=== PATIENT | male | born 1955 ===

== ENCOUNTER 2017-08-23 11:40 | Inpatient (IN) | payer OTHER ==
[2017-08-23] MEDS ORDERED: Dextrose 50% Syringe 50 ML* 25 GM/50 ML SYRINGE IV PUSH PRN (14:19)
[2017-08-23] MEDS ORDERED: Ondansetron INJ* 2 MG/ML VIAL IV PRN (14:19)
[2017-08-23] MEDS ORDERED: Acetaminophen TAB* 325 MG PO PRN (14:19)
[2017-08-23] MEDS ORDERED: Metoprolol Tartrate TAB* 25 MG PO SCH (14:22)
[2017-08-23 14:26] LABS: ABS Basophils 0.1 10^3/ul (0-0.2); ABS Eosinophils 0 10^3/ul (0-0.6); ABS Lymphocytes 2.7 10^3/ul (1.0-4.8); ABS Monocytes 0.7 10^3/ul (0-0.8); ABS Neutrophils 5.2 10^3/ul (1.5-7.7); ABS Nucleated RBC 0 10^3/ul; Eosinophil % 0.4 % (0-6); Hematocrit 46 % (42-52); Hemoglobin 16.4 g/dl (14.0-18.0); Lymphocyte % 30.9 % (25-47); Mean Corpuscular HGB Conc 36 g/dl (31-36); Mean Corpuscular Hemoglobin 33 pg (27-31); Mean Corpuscular Volume 92 fL (80-94); Mean Platelet Volume 8 um3 (7.4-10.4); Nucleated Red Blood Cells % 0.1; Platelet Count 299 10^3/ul (150-450); Red Blood Count 4.98 10^6/ul (4.0-5.4); Red Cell Distribution Width 13 % (10.5-15); White Blood Count 8.8 10^3/ul (3.5-10.8)
[2017-08-23 14:41] LABS: EGFR Non-African American 78.4 (>60)
[2017-08-23 14:44] LABS: INR 0.95 (0.77-1.02)
[2017-08-23] MEDS ORDERED: Perflutren Lipid Microsphere* 3 ML VIAL ONE (15:49)
--- NOTE | 2017-08-23 16:33 | ECHO ---
Patient: DIO MALIK [facility] Rec#: [id number] : 1955 Date: 08/23/2017 Age: 61y Height: 167.64 cm / 66.0 in Weight: 82.55 kg / 181.9 lbs Sex: M BSA: 1.92 Room#: [facility] Admit Date#: 08/23/2017 Type: Inpatient Referring: Júnior Marie NP Reading: Alexsander Anderson MD Systems Mgr: Daphne Rivera,RDCS,RDMS Transthoracic Echocardiogram Indication: CP, SOB, Elevated Trops BP: 128/62 HR: 83 Rhythm: NSR Findings History: HTN, HLD Technical Comments: The study quality is fair. The study is technically limited due to poor apical windows. Left Ventricle: The left ventricular chamber size is normal. Mild concentric left ventricular hypertrophy is observed. Global left ventricular wall motion and contractility are within normal limits. There is normal left ventricular systolic function. The estimated ejection fraction is 55-60%. There is an E to A reversal in the mitral valve flow pattern suggestive of diastolic dysfunction. Left Atrium: The left atrial chamber size is normal. Right Ventricle: The right ventricular chamber size and systolic function are within normal limits. Right Atrium: The right atrium appears normal. Aortic Valve: The aortic valve is trileaflet. Systolic excursion of the aortic valve is normal. There is no evidence of aortic regurgitation. There is no evidence of aortic stenosis. Mitral Valve: The mitral valve leaflets appear normal. There is a trace of mitral regurgitation. There is no evidence of mitral stenosis. Tricuspid Valve: The tricuspid valve leaflets are normal. There is trace tricuspid regurgitation. No pulmonary hypertension is noted. Pulmonic Valve: The pulmonic valve structure is not well visualized. There is no evidence of pulmonic regurgitation. Pericardium: There is no significant pericardial effusion. Aorta: The aortic root appears normal. There is mild dilatation of the aortic arch. Pulmonary Artery: The main pulmonary artery is not well visualized. Venous: The inferior vena cava is not visualized. Contrast: Definity was used to optimize study. A total of 2 ml was used Summary: There was not any prior study for comparison. Conclusions Mild concentric left ventricular hypertrophy is observed. Global left ventricular wall motion and contractility are within normal limits. There is normal left ventricular systolic function. The estimated ejection fraction is 55-60%. Systolic excursion of the aortic valve is normal. There is no evidence of aortic regurgitation. There is a trace of mitral regurgitation. There is trace tricuspid regurgitation. There is no significant pericardial effusion. Measurements Name Value Normal Range RVIDd (AP) 2D 2.6 cm (0.9 - 2.6) IVSd (2D) 1.2 cm (0.6 - 1) LVPWd (2D) 1.2 cm (0.6 - 1) LVIDd (2D) 4 cm (3.6 - 5.4) LVIDs (2D) 2.5 cm - LV FS (2D) 36 % (25 - 45) Aortic Annulus 2 cm (1.4 - 2.6) Ao root diameter (2D) 3.3 cm (2.1 - 3.5) Ascending Ao 3 cm (2.1 - 3.4) Aortic arch 3.6 cm (1.8 - 3.4) LA dimension (AP) 2D 3.6 cm (2.3 - 3.8) LAd ISD 4CH 5.7 cm (2.9 - 5.3) LA ISD 4CH W 4.3 cm (2.5 - 4.5) Name Value Normal Range LA ESV SP 4CH (A/L) 71.57 ml - LA ESV SP 2CH (A/L) 47.16 ml - LA ESV BP (A/L) 58.27 ml - LA ESV BP (A/L) index 30 ml/m2 - LA ESV SP 4CH (MOD) 67.02 ml - LA ESV SP 2CH (MOD) 45.05 ml - Name Value Normal Range MV E-wave Vmax 0.6 m/sec - MV deceleration time 203 msec - MV A-wave Vmax 0.7 m/sec - MV E:A ratio 0.9 ratio - P. vein S-wave Vmax 0.6 m/sec - P. vein D-wave Vmax 0.4 m/sec - P. vein S:D Vmax ratio 1.5 ratio - P. vein A-wave duration 107 msec - LV septal e' Vmax 0.05 m/sec - LV lateral e' Vmax 0.08 m/sec - LV E:e' septal ratio 12 ratio - LV E:e' lateral ratio 7.5 ratio - Name Value Normal Range AV Vmax 1.3 m/sec - AV VTI 21 cm - AV peak gradient 7 mmHg - AV mean gradient 4.1 mmHg - LVOT Vmax 1 m/sec - LVOT VTI 16.7 cm - LVOT peak gradient 4 mmHg - LVOT mean gradient 2.1 mmHg - MANFRED Vmax 0.9 m/sec - Name Value Normal Range TR Vmax 2.3 m/sec - TR peak gradient 21 mmHg - RAP 3 mmHg - RVSP 24 mmHg - Name Value Normal Range PV Vmax 0.7 m/sec - PV peak gradient 1.9 mmHg -
[2017-08-23] MEDS: Atorvastatin* 80 MG TAB PO SCH (16:52)
[2017-08-23] MEDS: Insulin LISPRO* 1 UNITS UNIT SUBCUT SCH (16:52)
--- NOTE | 2017-08-23 19:59 | HP ---
CC: Dr. Anderson * HISTORY AND PHYSICAL: DATE OF ADMISSION: 08/23/17 PRIMARY CARE PROVIDER: None. ATTENDING PHYSICIAN WHILE IN THE HOSPITAL: Dr. Fahad Verdugo * (report dictated by Júnior Marie NP). CHIEF COMPLAINT: 1. Shortness of breath. 2. Weakness. HISTORY OF PRESENT ILLNESS: Mr. Yancey is a 61-year-old male patient. Jarod chang has a history of diabetes, hypertension, hyperlipidemia. He used to be a smoker, he quit in 1986, he smoked for about 5 years. He says typically 3 times a week , he does swimming. He will swim 40 plus laps. He, unfortunately, though today , had an episode where he got about half way through his routine, he was doing about 22 laps, he got very weak, he got short of breath, he felt like he was going to drown and go under. He got to the edge of the pool. He hung out there. He got out of the pool, started feeling nauseated. He checked his pulse , he noticed that it was beating rapidly. He went home. When he got home, he was lying down. He checked his pulse lying down and he said in 15 seconds, he has counted about 40 beats. At that point, he was very concerned. He went over to [facility]. He was evaluated there and initial troponin was 0.09 , repeat troponin was 0.2. There was concern for acute coronary syndrome and he was sent over. He never once had chest discomfort. He says that he just felt short of breath. He denies any recent trips or travel. No calf pain. No leg swelling. No recent fevers or chills. He denied having any abdominal pain or any nausea or vomiting. He says that he had again no chest discomfort. He does state that over the last 3 weeks, said he has had intermittent discomfort at night, described it as a burning pain. He says it feels like reflux to him. When he turns and repositions in bed, it does go away. He was over at [facility]. Because of the elevated troponin, we were asked to accept him in transfer for further cardiovascular care. PAST MEDICAL HISTORY: Significant for: 1. Diabetes. 2. Hypertension. 3. Hyperlipidemia. PAST SURGICAL HISTORY: He has had a right femur ORIF. MEDICATIONS: The home meds include, according to his list: 1. Metformin 1000 mg p.o. b.i.d. 2. Ramipril 10 mg daily. 3. Lopid 600 mg daily. 4. Atorvastatin 10 mg daily. 5. Aspirin 81 mg daily. ALLERGIES TO MEDICATIONS: Include DEMEROL. FAMILY HISTORY: His mother had a history of tachycardia. His father had a history of stroke x2. SOCIAL HISTORY: He does not smoke anymore, he quit in 1986. He does drink 2 to 3 beers nightly. Surrogate decision maker is his , Garima. REVIEW OF SYSTEMS: There is no documented fever. No significant weight gain. There is no double vision. There is no ear discharge. There is no rhinorrhea. No sore throat. No thyroid enlargement. Denied having any chest pain. There was dyspnea on exertion. There was no abdominal pain. There was an episode of nausea, but no vomiting. No dysuria, no frequency. No seizure, no loss of consciousness. No pruritus and no skin ulcerations. Review of 14 systems completed, all others negative. PHYSICAL EXAMINATION GENERAL: At this time, Mr. Yancey is a 61-year-old male patient. He appears to be well-nourished, well-developed. He is sitting in the hospital bed. He does not appear to be in acute distress. VITAL SIGNS: Blood pressure 128/68, pulse 84, respirations 16, O2 sat 97%, temperature 98.0. HEENT: Head: Atraumatic, normocephalic. Eyes: EOMs are intact. Sclerae anicteric and not pale. NECK: Supple. Throat: Oral mucosa appears to be moist. No oropharyngeal erythema. LUNGS: Clear to auscultation bilaterally. No wheezes, rales, or rhonchi. HEART: Sounds S1, S2. Regular rate and rhythm. No murmurs, rubs, or gallops. ABDOMEN: Soft, flat, nontender. Bowel sounds present. EXTREMITIES: Pulses 2+ throughout. He had no peripheral edema. He is able to move all 4 extremities with 5/5 strength. NEUROLOGIC: The patient is awake, alert, oriented x3. Tongue midline. [employer] Developer were equal. He had no gross focal deficits. SKIN: Grossly intact. DIAGNOSTIC STUDIES/LAB DATA: He had WBC of 8.8, RBC of 4.95, hemoglobin of 15.4, hematocrit 46, platelet count of 299. He did have sodium 134, potassium 4.9, chloride of 97, bicarb 23, his creatinine was 1.6, BUN 18, calcium 9.5, mag 1.9. Total bili 0.4, AST 23, ALT 32, alk phos 22. Troponin 0.092, repeat troponin was 0.201. D-dimer less than 400. He had an EKG when he initially presented there showed sinus tachycardia rate of 101. No ST elevation or T-wave inversions. Repeat EKG today shows a sinus rhythm, rate of 84. No ST elevation or T-wave inversions. Old medical records were reviewed. He did have a chest x-ray at [place], impression: No acute disease. Old medical records reviewed. ASSESSMENT AND PLAN: Mr. Yancey is a 61-year-old male patient coming into the ED today with complaints of tachycardia. In addition to this, also complains of shortness of breath, particularly with exertion. He will be admitted under inpatient status for: 1. Acute coronary syndrome, possible non-ST elevation myocardial infarction. At this point, I did touch base. Dr. Anderson will be evaluating the patient. He will be n.p.o. after midnight for possible cath in the morning. He is chest pain free now. He is not having any symptoms. He is on an aspirin, statin, and I am going to add the beta tequila. He is on Lopid already. We will continue with these medications. Should he have any continued discomfort, I will consider heparin drip and I will wait for the recommendations from Dr. Anderson if he wants to pursue heparin drip. At this point, he is not having any symptoms and his EKG appears to be stable. We will cycle his troponins and we will continue to follow him closely. 2. Hypertension. Continue the meds prescribed. 3. Hyperlipidemia. We will check lipid panel in the morning. 4. Diabetes mellitus. sliding scale. We will check his A1c in the morning. 5. Code status. He is a full code. 6. Fluids, electrolytes, and nutrition. He can have a consistent carb, heart- healthy diet with no caffeine. 7. DVT prophylaxis. Heparin subcu as he is moderate risk. TIME SPENT: On the admission was 60 minutes, greater than half of the time was spent [id number] with the patient obtaining my history and physical, other time spent going over the plan of care with the patient and implementing the plan of care. I did discuss the plan of care with my attending, Dr. Verdugo; he is in agreement. JÚNIOR MARIE NP [id number]/CPS #: [id number] VILLA
[2017-08-23] MEDS: Heparin VIAL(*) 5000 UNITS/ML VIAL (FIVE THOUSAND) SUBCUT SCH (21:07)
--- NOTE | 2017-08-23 21:30 | CONS ---
CARDIOLOGY CONSULTATION: DATE OF CONSULT: 08/23/17 INDICATIONS FOR CONSULTATION: Palpitations, abnormal troponin level. HISTORY OF PRESENT ILLNESS: The patient is a 61-year-old gentleman with a history of diabetes and hypertriglyceridemia who came to the emergency room because of episode of palpitations. The patient states that he was swimming this morning for exercise. He does it 3 times a week. He states that while he was swimming, he just felt he had no energy. All of a sudden, he just felt like he could not swim anymore. It was difficult for him to finish his last lap. He decided to get out of pool, while he was showering and drying off, he just felt profoundly fatigued. He denied any chest pain, he denied any shortness of breath. The patient states that when he was walking out of the exercise facility, he did feel some diaphoresis but again no chest pain, no nausea, no shortness of breath. The patient states he went home, he had a glass of orange juice which made him feel a little bit better and while he was sitting in his couch, he felt his pulse in his neck and thought his heart rate was going about 160 beats a minute. Ultimately, he decided to have his drive him to the emergency room. The patient states that when he was walking into the emergency room, he did not have that same symptoms. He states that his energy level was normal, he was not profoundly fatigued, he did not think he was having tachycardia. His initial EKG at [facility] showed normal sinus rhythm with normal axis and intervals. The patient's initial troponin level was 0.2. The patient was transferred over to [facility] for evaluation. His troponin level at [facility] was 0.31. PAST MEDICAL HISTORY: Significant for: 1. Diabetes. 2. Hypertension. 3. Hyperlipidemia. PAST SURGICAL HISTORY: Right femur pinning in the past. OUTPATIENT MEDICATIONS: 1. Metformin 1000 mg b.i.d. 2. Atorvastatin 10 mg a day. 3. Ramipril 10 mg a day. 4. Gemfibrozil 600 mg a day. 5. Aspirin 81 mg a day. FAMILY HISTORY: Significant for diabetes and stroke. SOCIAL HISTORY: He is a previous smoker. He quit a year ago. He does have 1 to 2 beers a day. He lives with his . He denies any fevers or chills. No changes in bowel or bladder habits. No changes in weight. Other 10-point review is unremarkable. PHYSICAL EXAM: Height is 5 feet 6 inches, weight is 182 pounds, temperature 98.6, heart rate is 85, blood pressure of 109/62, respiratory rate is 20, oxygen saturation 95% on room air. Sclerae are anicteric. Oropharynx is pink without erythema. Carotids are 2+ without bruits. JVD is normal. Thyroid is normal. Cardiac Exam: S1, S2 without any murmurs, rubs, or gallops. Lungs are clear to auscultation bilaterally. There is no dullness to percussion. Abdomen is soft, nontender and nondistended with normoactive bowel sounds. Extremities show no edema. He has 2+ pulses throughout. The patient is awake, alert and oriented. He moves all 4 extremities equally. DIAGNOSTIC STUDIES/LAB DATA: CBC within normal limits. Chemistries within normal limits. BNP 76, troponin 0.31. EKG is normal sinus rhythm with normal axis and intervals. His echocardiogram shows normal LV size and systolic function. No significant valvular abnormalities. IMPRESSION: This is a 61-year-old gentleman who had an episode of tachycardia today. It seems that it lasted approximately 45 minutes to an hour. He was in normal sinus rhythm when he arrived in the emergency room. The patient had mildly elevated troponin levels. I do not think that this is consistent with an acute coronary syndrome. I think his elevated troponins are due to demand mismatch due to his tachycardia. For now, my recommendation is to rule out further elevations in his troponin level. I will schedule him for stress echocardiogram in the morning. We will stay off of beta blockers for now until his stress test was completed. This was discussed with Júnior Marie. [id number]/[facility] #: [id number] VILLA
[2017-08-24] MEDS: Heparin VIAL(*) 5000 UNITS/ML VIAL (FIVE THOUSAND) SUBCUT SCH ×2 (05:33→15:31)
[2017-08-24 05:53] LABS: ABS Basophils 0.1 10^3/ul (0-0.2); ABS Eosinophils 0.2 10^3/ul (0-0.6); ABS Lymphocytes 2.6 10^3/ul (1.0-4.8); ABS Monocytes 0.6 10^3/ul (0-0.8); ABS Neutrophils 2.4 10^3/ul (1.5-7.7); ABS Nucleated RBC 0 10^3/ul; Eosinophil % 2.6 % (0-6); Hematocrit 47 % (42-52); Hemoglobin 16.5 g/dl (14.0-18.0); Lymphocyte % 44.5 % (25-47); Mean Corpuscular HGB Conc 35 g/dl (31-36); Mean Corpuscular Hemoglobin 33 pg (27-31); Mean Corpuscular Volume 93 fL (80-94); Mean Platelet Volume 8 um3 (7.4-10.4); Nucleated Red Blood Cells % 0; Platelet Count 259 10^3/ul (150-450); Red Blood Count 5.04 10^6/ul (4.0-5.4); Red Cell Distribution Width 13 % (10.5-15); White Blood Count 5.8 10^3/ul (3.5-10.8)
[2017-08-24 06:00] LABS: EGFR Non-African American 81.3 (>60)
[2017-08-24] MEDS: Insulin LISPRO* 1 UNITS UNIT SUBCUT SCH ×3 (08:31→16:47)
[2017-08-24] MEDS ORDERED: Gemfibrozil TAB* 600 MG PO SCH (09:00)
[2017-08-24] MEDS ORDERED: Aspirin EC Low Dose* 81 MG TAB.EC PO SCH (09:00)
[2017-08-24] MEDS ORDERED: Ramipril CAP* 10 MG PO SCH (09:00)
[2017-08-24 11:37] VITALS: BP 111/73
[2017-08-24] MEDS ORDERED: Perflutren Lipid Microsphere* 3 ML VIAL ONE (13:24)
[2017-08-24] MEDS: Atorvastatin* 80 MG TAB PO SCH (16:47)
--- NOTE | 2017-08-25 12:16 | DS ---
CC: Dr. Anderson * DISCHARGE SUMMARY: DATE OF ADMISSION: 08/23/17 DATE OF DISCHARGE: 08/24/17 PRIMARY CARE PROVIDER: None. He is establishing at the [facility]. HEAVY DUTY DIESEL MECHANIC: Dr. Anderson. MY ATTENDING PHYSICIAN WHILE IN THE HOSPITAL: Dr. Fahad Verdugo * (report dictated by Donna Mcnamara NP). PRINCIPAL DIAGNOSIS: Include arrhythmia, concern for possible supraventricular tachycardia versus atrial fibrillation. SECONDARY DIAGNOSES: Include: 1. Diabetes. 2. Hypertension. 3. Hyperlipidemia. DISCHARGE MEDICATIONS: Include new medications: 1. Toprol-XL 25 mg daily. 2. Metformin 1000 mg p.o. b.i.d. 3. Atorvastatin 10 mg daily. 4. Ramipril 10 mg daily. 5. Gemfibrozil 600 mg daily. 6. Aspirin 81 mg daily. HISTORY OF PRESENT ILLNESS AND HOSPITAL COURSE: I refer you to my H and P dictated yesterday for further details. In short, Mr. Yancey is a 61-year-old male patient, who again carries a history of diabetes, hypertension, hyperlipidemia. He used to be a smoker and quit in 1986. He typically exercises 3 times a week. He was doing some swimming yesterday. He will do normally 40 plus laps and he started go half way through his exercise routine yesterday, he started feeling nauseated. He felt palpitations and felt very weak. He got hot. He felt really short of breath. He checked his pulse and in about 15 seconds, he counted about 40 beats. He went to [facility]. The initial troponin there was 0.09 and then repeat was 0.2. The patient was sent to [facility] for further cardiac evaluation. He was seen in consult by Dr. Anderson, who evaluated the patient and felt he may have had some SVT or possibly atrial fibrillation. It was felt that the patient did not have acute coronary syndrome. He underwent a stress echo today. I did touch base with Dr. Anderson after the stress echo. No arrhythmia was recorded. There was no arrhythmia noted on telemetry last night. The patient remained asymptomatic. His troponins did peak at 0.3 and they are back down now to 0.12. He passed the stress echo. The patient was felt to be stable for discharge home under the new dose of metoprolol XL 25 mg daily, so he can be discharged home. PHYSICAL EXAMINATION ON DISCHARGE: Blood pressure 111/73, pulse 76, respirations 20, O2 sat 95%, temperature 98.5. General: At this time, Mr. Yancey is a 61-year- old male patient. He is sitting in the hospital bed. He does not appear to be in any acute distress. HEENT: Head: Atraumatic, normocephalic. Eyes: EOMs intact. Sclerae anicteric. Not pale. Neck: Supple. Throat: Oral mucosa appears to be moist. No oropharynx erythema. Heart: Sounds S1, S2. Regular rate and rhythm. No murmurs, rubs, or gallops. Lungs were clear to auscultation bilaterally. No wheezes, rales, or rhonchi. Abdomen was soft. It was flat, nontender. Bowel sounds present. Extremities: Pulses were 2+ throughout, moving all 4 extremities with 5/5 strength. Neurologically, the patient is awake, alert, oriented x3. No gross focal deficits. Skin: Intact. DIAGNOSTIC STUDIES/LAB DATA: Labs on discharge, WBC of 5.8, RBC of 5.04, hemoglobin of 16.5, hematocrit 47, platelet count of 259. INR 0.95, D-dimer less than 200. Sodium 139, potassium 4.1, chloride 99, bicarb 25, BUN 21, creatinine 0.94, glucose 207. His A1c was 7.8. LDL 83. Troponin this morning was 0.12. He had an echo done yesterday, EF of 55% to 60%. Global left wall motion and contractility within normal limits. Again, he did have an EKG done yesterday showing a normal sinus rhythm, rate of 84. No ST elevations or T-wave inversions. Again, verbal report from Dr. Anderson on the stress echo, the patient had passed, appeared to be normal. This is a complex medical case. I refer you to medical chart for further details. STATUS DURING HOSPITALIZATION: Observation. ISSUES TO BE ADDRESSED IN FOLLOWUP: 1. Arrhythmia. Again, this could be SVT or atrial fibrillation. He will be placed on metoprolol XL 25. He is to follow up with Dr. Anderson in 2 to 3 months. He is to come to the ER immediately should he have anymore palpitations or arrhythmias. If this does happen again, we will consider getting some type of event monitor. 2. Diabetes. Continue his meds as prescribed. 3. Hyperlipidemia. Continue his Lopid and statin therapy. 4. Hypertension. Continue his metoprolol XL, ramipril, and follow with his primary and Dr. Anderson. Issues to return to the hospital include, but not limited to, chest pain, shortness of breath, fevers, chills, nausea, vomiting, or any other worrisome symptoms. TIME SPENT: On the discharge was 40 minutes, greater than half the time spent face- to-face with the patient going over the discharge plan, another half time spent implementing discharge plan. I did discuss the discharge plan with my attending, Dr. Verdugo; he is in agreement. DONNA MCNAMARA NP [id number]/[facility] #: [id number] MTDJo Ann
== END 2017-08-24 18:00 | disposition home or self-care (01) | DRG 310 ==
LOC: MEDTELE 11:40 → UNDOADMOB 11:40 → MEDTELE 12:42 → OBSVTOIN 14:13 → MEDTELE 14:13
PROVIDERS: ADMIT Hospitalist; ATTEND Hospitalist
PROC: 4A12XM4 Monitoring of Cardiac Stress, External Approach (ICD-10-PCS; principal; 2017-08-24)
DX: I47.1 Supraventricular tachycardia (principal); I48.91 Unspecified atrial fibrillation; E11.9 Type 2 diabetes mellitus without complications; I10 Essential (primary) hypertension; E78.5 Hyperlipidemia, unspecified; Z79.84 Long term (current) use of oral hypoglycemic drugs; Z79.82 Long term (current) use of aspirin; Z87.891 Personal history of nicotine dependence; Z88.8 Allergy status to other drugs, medicaments and biological substances; Z82.49 Family history of ischemic heart disease and other diseases of the circulatory system; Z82.3 Family history of stroke; Z83.3 Family history of diabetes mellitus
CPT/HCPCS: 36415; 80048; 80061; 83036; 83880; 84484; 85025; 85379; 85610; 86803; 93005; 93017; 93306; A9270-GY; C8929; J1644